=== PATIENT | female | born 1940 | race Caucasian/White ===

== ENCOUNTER 2022-12-27 10:31 | Day surgery (SDC) | payer MEDICARE, SELFPAY ==
[2022-12-27] MEDS: Lactated Ringers 1,000 ML 15 ML IV (11:23)
[2022-12-27 11:25] VITALS: BP 173/75; PULSE 82; RESP 18; TEMP 36.2; O2SAT 98; BMI 26.4
[2022-12-27 11:51] LABS: Bedside Glucose 142 mg/dL (74-106)
[2022-12-27] MEDS: Cefazolin 2 GM in 0.9% Normal Saline 100 ML IV (13:09)
--- NOTE | 2022-12-27 13:57 | PCM.HP.STD ---
HPI - General General Date of Service: 12/27/22 Chief Complaint: Distal left ureteral calculi HPI Narrative ITZEL CARTER, is a 82 F who presents for treatment of a distal left ureteral calculi with laser lithotripsy and stent placement [facility] Medical History (Updated 12/22/22 @ 11:19 by Radha Huffman) Back pain Cardiology follow-up encounter Diabetes Dietary restriction Former smoker High cholesterol History of heart attack History of pain when walking Hx of fracture of arm Hypertension Post-menopausal Thyroid disease Wears dentures Wears glasses Home Medications amlodipine 10 mg tablet 10 mg PO PRN PRN ELEVATED BP 12/22/22 [History Last Taken Unknown] aspirin 81 mg tablet,delayed release 81 mg PO DAILY 12/22/22 [History Last Taken 12/17/22] atorvastatin 40 mg tablet 40 mg PO DAILY 12/22/22 [History Last Taken Unknown] levothyroxine 50 mcg tablet 50 mcg PO DAILY 12/22/22 [History Last Taken 12/27/22] metformin 500 mg tablet,extended release 24hr 500 mg PO BID 12/22/22 [History Last Taken Unknown] ciprofloxacin HCl 500 mg tablet (Cipro) 500 mg PO BID #6 tabs 12/27/22 [Rx Last Taken Unknown] Allergy/AdvReac Type Severity Reaction Status Date / Time No Known Allergies Allergy Verified 12/27/22 11:22 Surgical History (Updated 12/22/22 @ 11:19 by Radha Huffman) History of quadruple bypass Hx of appendectomy Hx of cholecystectomy Hx of tubal ligation Social History Smoking Status: Former smoker Vital Signs Vital Signs Vital Signs: 12/27/22 11:25 12/27/22 11:25 Temperature 97.1 F L Temperature Source Temporal Pulse Rate 82 Respiratory Rate 18 Respiratory Pattern Normal Blood Pressure 173/75 H Blood Pressure Mean 107 Blood Pressure Source Monitor Blood Pressure Position Semi-Fowlers Blood Pressure Location Right Arm Pulse Ox 98 Oxygen Delivery Method Room Air Weight Weight: 69.853 kg Body Mass Index (BMI) 26.4 Results Lab / Micro Data Labs: Laboratory Results - last 24 hr 12/27/22 11:09: POC Glucose 142 H
--- NOTE | 2022-12-27 13:57 | PCM.DC ---
Discharge Instructions Diet Discharge Diet: No restrictions, Light diet - advance as tolerated and Soft diet Activity Discharge Activity: Return to Normal Activity Follow Up Care Please Follow Up With: Rodrick Snyder MD When: Call office for an appointment next week Test Results: Test results from this visit will be discussed in further detail at your follow-up appointment, if applicable. Discharge Plan Admission Primary Reason for Your Visit: kidney stone Attending Provider: Rodrick Snyder Primary Care Provider: Monica Galvez Discharge Orders/Prescriptions Prescriptions: New ciprofloxacin HCl [Cipro] 500 mg tablet 500 mg PO BID Qty: 6 0RF Continued atorvastatin 40 mg Tablet 40 mg PO DAILY aspirin 81 mg Tablet,Delayed Release (Dr/Ec) 81 mg PO DAILY amlodipine 10 mg Tablet 10 mg PO PRN PRN (Reason: ELEVATED BP) levothyroxine 50 mcg Tablet 50 mcg PO DAILY metformin 500 mg Tablet Extended Release 24hr 500 mg PO BID Referrals / Follow Up: Monica Galvez, [Primary Care Provider] - Disposition Disposition (needs filled in before D/C Order can be placed): Home, Self Care
--- NOTE | 2022-12-27 13:58 | PCM.OPRPT ---
Report of Operation Date of Procedure: 12/27/22 Pre-Operative Diagnosis: Distal left ureteral calculi impacted Post-Operative Diagnosis: The same Surgery/Procedure Performed:: Cystoscopy, left retrograde pyelogram, interpretation fluoroscopic images, balloon dilation of the left ureter, left ureteroscopy laser lithotripsy of stone and stent placement Description of Surgical Findings:: Indication this is a an 82-year-old female who presents with obstructing stone in the distal left ureter after some episodes of hematuria which was found on the CT scan she also has a small mass in the right kidney which we recommend the observation for the time being we are plan to proceed with intervention for this obstructing stone in the distal left ureter. Patient was taken back to the operating room and is with duction of general anesthesia she was placed in dorsolithotomy position. I went in the bladder with a 21 [place] rigid cystourethroscope scope the urethra vaginal area and then prepped and draped in usual sterile fashion. Inside the bladder did a mancia cystoscopy there is no tumors or stones within the bladder I then identified the left ureteral orifice cannulated with a wire advanced a wire past the stone under fluoroscopic guidance and then advanced a balloon dilator up to the stone but not beyond it. I then balloon dilated the distal left ureter. I then left the wire in place and then next to the stone I went in with a SlimLine ureteroscope retrograde pyelogram was done to provoke confirm the anatomy and the location. I then used a 270 ?m laser fiber and lasered the stone little tiny pieces all the pieces passed into the bladder as well as lasering it. Eventually got all the stone lasered completely all the stones out of the ureter. And then I advanced a stent over the wire and left the stent in place and drained the patient's bladder so successful balloon dilation, laser, retrograde and stent placement to left side for obstructing stone. She will see me back next week for cystoscopy stent removal Surgeon: Rodrick Snyder Type of Anesthesia: General Drains: stent left Admit VTE Documentation VTE Present on Admission: No VTE Mechan Device Prophylaxis: SCD's VTE Pharm Prophylaxis ordered?: No
[2022-12-27 14:07] VITALS: BP 173/75; BP 183/67; PULSE 71; RESP 16; TEMP 36.3; O2SAT 96
[2022-12-27 14:15] VITALS: BP 173/75; BP 182/77; PULSE 70; RESP 16; O2SAT 100
[2022-12-27 14:30] VITALS: BP 173/75; BP 184/60; PULSE 64; RESP 16; O2SAT 98
[2022-12-27 14:40] LABS: Bedside Glucose 114 mg/dL (74-106)
[2022-12-27 14:45] VITALS: BP 173/75; BP 180/62; PULSE 62; RESP 16; TEMP 36.5; O2SAT 99
[2022-12-27 15:30] VITALS: BP 173/75
== END 2022-12-27 15:43 | disposition home or self-care (01) ==
LOC: SDC 10:38 → AC 11:08
PROVIDERS: PCP Internal Medicine; Referring Provider Urology; Visit Provider Urology
PROC: 0TJ98ZZ Inspection of Ureter, Via Natural or Artificial Opening Endoscopic (ICD-10-PCS; CPT 52352; principal; 2022-12-27 13:10)
DX: N20.1 Calculus of ureter (principal); E11.9 Type 2 diabetes mellitus without complications; I10 Essential (primary) hypertension; E78.00 Pure hypercholesterolemia, unspecified; E07.9 Disorder of thyroid, unspecified; Z79.82 Long term (current) use of aspirin; Z79.84 Long term (current) use of oral hypoglycemic drugs; Z79.890 Hormone replacement therapy; Z79.899 Other long term (current) drug therapy; I25.2 Old myocardial infarction; Z87.891 Personal history of nicotine dependence; Z95.1 Presence of aortocoronary bypass graft
CPT/HCPCS: 52356; 00918; 76000; 82962; J7120; C1769; C2617; J2405

== ENCOUNTER 2023-01-19 13:57 | Emergency (ER) | payer MEDICARE, SELFPAY ==
[2023-01-19 13:58] VITALS: BP 132/67; PULSE 86; RESP 16; TEMP 36; O2SAT 100
--- NOTE | 2023-01-19 14:59 | EDS_ITS ---
HPI History of Present Illness Chief Complaint: Dizziness Narrative Narrative: 82-year-old female here with dizziness. States has history of similar. States this began this AM. No head trauma. No volume loss. no bleeding diathesis. no urinary complaints. [facility] Medical History (Updated 01/19/23 @ 17:[address] Naveed Pereira, DO) Back pain Cardiology follow-up encounter Diabetes Dietary restriction Former smoker High cholesterol History of heart attack History of pain when walking Hx of fracture of arm Hypertension Post-menopausal Thyroid disease Wears dentures Wears glasses Home Medications amlodipine 10 mg tablet 10 mg PO PRN PRN ELEVATED BP 12/22/22 [History Last Taken Unknown] aspirin 81 mg tablet,delayed release 81 mg PO DAILY 12/22/22 [History Last Taken 12/17/22] atorvastatin 40 mg tablet 40 mg PO DAILY 12/22/22 [History Last Taken Unknown] levothyroxine 50 mcg tablet 50 mcg PO DAILY 12/22/22 [History Last Taken 12/27/22] metformin 500 mg tablet,extended release 24hr 500 mg PO BID 12/22/22 [History Last Taken Unknown] ciprofloxacin HCl 500 mg tablet (Cipro) 500 mg PO BID #6 tabs 12/27/22 [Rx Last Taken Unknown] Allergy/AdvReac Type Severity Reaction Status Date / Time No Known Allergies Allergy Verified 01/19/23 13:58 Surgical History History of quadruple bypass Hx of appendectomy Hx of cholecystectomy Hx of tubal ligation Social History Smoking Status: Former smoker ROS ROS ED ROS Narrative Constitutional: Denies fever HEENT: Denies sore throat Neck: Denies neck pain Cardiovascular: Denies chest pain, syncope Respiratory: Denies shortness of breath GI: Denies nausea vomiting or abdominal pain : Denies changes in urinary habits Musculoskeletal: Denies muscle or joint pain Neurologic: Denies numbness weakness or loss of sensation. Endorses dizziness Skin denies rash EXAM Physical Exam Narrative Exam Narrative: Nursing triage notes reviewed, Vital signs reviewed Constitutional: please see mdm HENT: MMM Eyes: Pupils equal round and reactive to light, Extraocular muscles intact Neck: No stridor, no JVD, full neck ROM Lungs: Clear to auscultation, No wheezing or rales. No increased work of breathing, no conversational dyspnea, no accessory muscle use, no nasal flaring. No respiratory distress noted Heart: Regular rate and rhythm, No murmurs, No rubs and No gallops, 2+ distal pulses (radial, femoral, posterior tibial) in all extremities Abdomen: Soft, there is no tenderness, rigidity, rebound or guarding, no obvious peritoneal signs, no palpable pulsatile abdominal masses, no auscultated abd ominal bruit : No CVAT Extremities: No edema Neuro: Alert and oriented x3, neuro exam at baseline, cranial nerves II through XII are intact. No pain with extraocular muscle movement. There is negative test of skew. Normal speech. 5 of 5 strength in upper and lower extremities in flexion extension. Intact sensation to light touch in upper and lower extremity dermatomes. No truncal or extremity ataxia. No dysdiadochokinesia. Normal gait. 2+ reflexes. No meningeal signs. Negative Babinski. NIH of 0 Skin: No rash or lesions noted Const Vital Signs: 01/19/23 13:58 01/19/23 15:20 01/19/23 15:20 Temperature 96.8 F L Temperature Source Temporal Pulse Rate 86 73 Respiratory Rate 16 20 H Respiratory Effort Normal Non-Labored Respiratory Pattern Normal Blood Pressure 132/67 H Blood Pressure Mean 88 Pulse Ox 100 97 Oxygen Delivery Method Room Air Room Air 01/19/23 17:43 Temperature Temperature Source Pulse Rate 65 Respiratory Rate 16 Respiratory Effort Respiratory Pattern Blood Pressure 125/54 H Blood Pressure Mean Pulse Ox 98 Oxygen Delivery Method MDM MDM MDM Narrative Medical decision making narrative: Chief Complaint: Dizziness External records reviewed: No recent advanced imaging of the head noted in the chart I considered the following differential diagnosis: Dehydration, arrhythmia, myocardial ischemia, anemia, posterior circulation CVA Patient's vital signs are stable. She had no focal neurologic deficits. Obtained a broad lab and imaging work-up to further elucidate etiology patient complaint. I obtained a CT scan of the head, chest x-ray to rule out intracranial abnormality such as bleed or mass. X-ray to rule out pneumonia or other issues with heart failure. Obtain labs rule out anemia, electrolyte abnormalities, UTI, dehydration, anemia. Labs are reassuring with no signs of dehydration, significant [place] abnormalities, severe anemia, pancreatitis, myocardial ischemia. UA consistent with asymptomatic bacteriuria. EKG had no evidence of arrhythmia or myocardial ischemia. Patient ambulated here in the emergency department well. No clear life limiting etiology could be assessed. Urine negative at this time. Encouraged patient to drink plenty of fluids and follow with her primary care physician for outpatient evaluation. Sent urine for cx. Factors affecting care: Hypertension, hyperlipidemia Social determinants of health: Elderly, poor literacy History obtained from others: Shared decision making: I will have a discussion with the patient and or visitors regarding risk/benefits of further testing or admission. They will be made aware of of the risk/benefits inherent in this decision they will be given the opportunity to voice understanding. Consults: None Lab Data Attestation: I reviewed the patient's lab results. Lab results narrative: CBC without leukocytosis, severe anemia, no thrombocytopenia. BMP without evidence of significant electrolyte abnormalities, no anion gap, no acute kidney injury. BN P within normal limits this suggests no severe volume overload Lipase is wnl indicating no pancreatic inflammation. CMP without evidence of acute kidney injury, significant electrolyte abnormality, anion gap, no evidence hepatobiliary pathology. Labs: Laboratory Results - last 24 hr 01/19/23 01/19/23 01/19/23 15:20 15:20 15:20 WBC 10.2 RBC 4.49 Hgb 13.7 Hct 44.0 MCV 98.0 MCH 30.5 MCHC 31.1 L RDW Std Deviation 45.0 H RDW Coeff of Beatriz 12.6 Plt Count 276 MPV 10.1 Immature Gran % (Auto) 0.300 Neut % (Auto) 71.5 H Lymph % (Auto) 20.4 Barron % (Auto) 6.3 Eos % (Auto) 1.0 Baso % (Auto) 0.5 Absolute Neuts (auto) 7.3 Absolute Lymphs (auto) 2.09 Nucleated RBC % 0 Sodium 137 Potassium 4.4 Chloride 106 Carbon Dioxide 23.0 Anion Gap 8 BUN 15 Creatinine 1.16 H Estim Creat Clear Calc 33.40 Est GFR (MDRD) Af Amer 58 L Est GFR (MDRD) Non-Af 48 L BUN/Creatinine Ratio 12.9 Glucose 180 H Calcium 9.8 Total Bilirubin 0.40 AST 20 ALT 26 Alkaline Phosphatase 70 Troponin I High Sens 7 B-Natriuretic Peptide 21.3 Total Protein 7.4 Albumin 4.0 Globulin 3.4 Albumin/Globulin Ratio 1.2 Lipase 53 Urine Color Urine Clarity Urine pH Ur Specific [place] Urine Protein Urine Glucose (UA) Urine Ketones Urine Occult Blood Urine Nitrite Urine Bilirubin Urine Urobilinogen Ur Leukocyte Esterase Urine RBC Urine WBC Ur Squamous Epith Cells Urine Bacteria Urine Mucus 01/19/23 16:22 WBC RBC Hgb Hct MCV MCH MCHC RDW Std Deviation RDW Coeff of Beatriz Plt Count MPV Immature Gran % (Auto) Neut % (Auto) Lymph % (Auto) Barron % (Auto) Eos % (Auto) Baso % (Auto) Absolute Neuts (auto) Absolute Lymphs (auto) Nucleated RBC % Sodium Potassium Chloride Carbon Dioxide Anion Gap BUN Creatinine Estim Creat Clear Calc Est GFR (MDRD) Af Amer Est GFR (MDRD) Non-Af BUN/Creatinine Ratio Glucose Calcium Total Bilirubin AST ALT Alkaline Phosphatase Troponin I High Sens B-Natriuretic Peptide Total Protein Albumin Globulin Albumin/Globulin Ratio Lipase Urine Color Yellow Urine Clarity Sl. Cloudy Urine pH 6.0 Ur Specific [place] 1.010 Urine Protein 30 H Urine Glucose (UA) Normal Urine Ketones Negative Urine Occult Blood 10 H Urine Nitrite Negative Urine Bilirubin Negative Urine Urobilinogen Normal Ur Leukocyte Esterase 500 H Urine RBC 0 SEEN Urine WBC 0-5 SEEN Ur Squamous Epith Cells 0-5 SEEN Urine Bacteria 1+ Urine Mucus 0 SEEN Radiography Chest X-Ray - ED: Read by ED Physician Diagnostic Testing: Clinical Impression(s) from Imaging Studies Brain CT 01/19/23 15:10 IMPRESSION: There are no acute findings. Chronic involutional changes of the brain. Electronically Signed: Raúl Gandhi MD at 15:49 EDT , Chest X-Ray 01/19/23 15:30 IMPRESSION: There are no acute findings. Electronically Signed: Raúl Gandhi MD at 15:47 EDT , I have personally reviewed the patient's chest x-ray. Chest x-ray is unremarkable for pulmonary edema, pneumothorax, pneumonia or focal cardiopulmonary abnormality. EKG Initial EKG: Attestation: I personally reviewed and interpreted this EKG as follows: Interpretation: Sinus Rhythm Comments: EKG with normal sinus rhythm, normal axis, no intervals, no STEMI Discharge Plan Triage Chief Complaint: Dizziness ED Provider: Naveed Pereira Dx/Rx/DC Orders Clinical Impression: Dizziness Instructions: ED Dizziness, Uncertain Cause Prescriptions: No Action atorvastatin 40 mg Tablet 40 mg PO DAILY aspirin 81 mg Tablet,Delayed Release (Dr/Ec) 81 mg PO DAILY amlodipine 10 mg Tablet 10 mg PO PRN PRN (Reason: ELEVATED BP) levothyroxine 50 mcg Tablet 50 mcg PO DAILY metformin 500 mg Tablet Extended Release 24hr 500 mg PO BID ciprofloxacin HCl [Cipro] 500 mg tablet 500 mg PO BID Qty: 6 0RF Primary Care Provider: Tico Lara Referrals: Tico Lara MD [Primary Care Provider] - Disposition Disposition: Home, Self Care Discharge Date/Time: 01/19/23 17:45
--- NOTE | 2023-01-19 15:10 | CT_ITS ---
STUDY: CT BRAIN WITHOUT CONTRAST REASON FOR EXAM: Female, 82 years old. dizziness, r/o bleed or mass Individualized dose optimization techniques were used for this CT. TECHNIQUE: Transaxial CT imaging of the brain was performed without administration of intravenous contrast material. COMPARISON: None FINDINGS: There are calcifications around the carotid artery. These are noted in the cavernous carotid arteries. Normal calvarium. Normal soft tissues. There is mild cerebral atrophy with widening of the extra-axial spaces and ventricular dilatation. There are areas of decreased attenuation within the white matter tracts of the supratentorial brain, consistent with microvascular disease changes. Normal basal ganglia and thalami. Normal brainstem. There is mild cerebellar atrophy. There is no intracranial hemorrhage. There are no findings of an acute ischemic infarction. Normal visualized paranasal sinuses. ASPECTS Score for Acute Strokes: 10 CT/Brain/Head without Contrast IMPRESSION: There are no acute findings. Chronic involutional changes of the brain. Electronically Signed: Raúl Gandhi MD at 15:49 EDT ,
[2023-01-19 15:20] VITALS: PULSE 73; RESP 20; O2SAT 97; BMI 26.8
--- NOTE | 2023-01-19 15:30 | RAD_ITS ---
STUDY: XR Chest 1 View 01/19/2023 3:25 PM REASON FOR EXAM: Female, 82 years old. CHEST PAIN dizziness COMPARISON: None TECHNIQUE: XR Chest 1 View FINDINGS: There is no demonstrated pleural abnormality. There are multiple median sternotomy wires. Normal heart size. Normal mediastinum. Normal damian. Prominent appearing increased interstitial lung markings. Normal visualized pulmonary arteries. There is atherosclerotic calcification of the aortic arch with tortuosity. There are diffuse degenerative changes of the visualized thoracic spine. There is degenerative osteoarthritis of the bilateral shoulders. There is no demonstrated abnormality of the visualized soft tissue structures of the upper abdomen. RAD/Chest 1 View (Portable) IMPRESSION: There are no acute findings. Electronically Signed: Raúl Gandhi MD at 15:47 EDT ,
[2023-01-19 15:33] LABS: Absolute Lymphocyte Count 2.09 X10^3/uL (0.83-4.51); Absolute Neutrophil Count 7.3 X10^3/uL (2.0-7.7); Basophil# 0.05 X10^3/uL; Basophil% 0.5 % (0-1); Hemoglobin 13.7 g/dL (12.0-15.0); Lymphocyte # 2.09 X10^3/ul (0.83-4.51); Lymphocyte % 20.4 % (19-41); Mean Corp Hgb Conc 31.1 g/dL (32-36); Mean Corpuscular Hgb 30.5 pg (27.0-32.0); Mean Platelet Vol. 10.1 fl (6.2-12.0); Monocyte# 0.64 X10^3/uL; Monocyte% 6.3 % (0-10); NRBC Flagged by Analyzer 0 % (0-5); Neutrophil # 7.32 X10^3/uL (2.7-7.7); Neutrophil % 71.5 % (47-70); Platelet Count 276 K/mm3 (150-450); RBC Distribution Width CV 12.6 % (11.6-14.6); Red Blood Count 4.49 M/mm3 (4.2-5.4); White Blood Count 10.2 K/mm3 (4.4-11.0)
[2023-01-19 15:53] LABS: ALB/GLOB Ratio 1.2 RATIO (0.9-2.4); AST(SGOT) 20 U/L (15-37); Alanine Aminotransfer ALT/SGPT 26 U/L (13-56); Alkaline Phosphatase 70 U/L (45-117); Anion Gap 8 (5-15); BUN 15 mg/dL (7-18); BUN/Creat Ratio 12.9 RATIO (10-20); Calcium,Total 9.8 mg/dL (8.5-10.1); Chloride 106 mmol/L (98-107); Creatinine, Serum 1.16 mg/dL (0.55-1.02); EST Glomerular Filtration Rate 48 mL/min (>60); Est Glom Filt Rate - Afr Amer 58 mL/min (>60); Globulin 3.4 g/dL (2.2-4.2); Glucose 180 mg/dL (74-106); Lipase 53 U/L (13-75); Potassium 4.4 mmol/L (3.5-5.1); Protein, Total 7.4 g/dL (6.4-8.2); Sodium Level 137 mmol/L (136-145); Troponin-I HS 7 pg/mL (3.0-54.0)
[2023-01-19 15:59] LABS: BNP,B-Type NATRIURETIC PEPTIDE 21.3 pg/mL (0-100)
--- NOTE | 2023-01-19 16:11 | EKG12_ITS ---
Test Reason : DIZZINESS Blood Pressure : / mmHG Vent. Rate : 083 BPM Atrial Rate : 083 BPM P-R Int : 118 ms QRS Dur : 084 ms QT Int : 344 ms P-R-T Axes : -27 020 032 degrees QTc Int : 404 ms Normal sinus rhythm Normal ECG Confirmed by ROSARIO BALL ([id number]), communications editor JOE PHAN ([id number]) on 01/23/2023 7:56:15 AM Referred By: BB/ANKITA Confirmed By:ROSARIO BALL
[2023-01-19 16:27] LABS: Mucous, Urine 0 SEEN /hpf (<or=2+); Red Blood Cells-Urine 0 SEEN /hpf (0-5)
[2023-01-19 16:34] LABS: Color, Urine Yellow (Yellow); Glucose, Dipstick Normal (Normal); Ketone-Dipstick Negative (Negative); Leukocyte Esterase-Dipstick 500 /ul (Negative); Nitrite-Dipstick Negative (Negative); Occult Blood-Urine 10 /ul (Negative); Protein-Dipstick 30 mg/dl (Negative); Urine Bilirubin Dipstick Negative (Negative); Urine Clarity Sl. Cloudy (Clear); Urine Urobilinogen Normal (Normal)
[2023-01-19 16:45] LABS: Bacteria 1+ /hpf (None Seen); Squamous Epithelial Cells - UA 0-5 SEEN /hpf (5-10); White Blood Cells 0-5 SEEN /hpf (0-5)
[2023-01-19 17:43] VITALS: BP 125/54; PULSE 65; RESP 16; O2SAT 98
== END 2023-01-19 17:45 | disposition home or self-care (01) ==
PROVIDERS: Emergency Provider Emergency Medicine; PCP Family Medicine; Visit Provider Emergency Medicine
DX: R42 Dizziness and giddiness (principal); E11.9 Type 2 diabetes mellitus without complications; I10 Essential (primary) hypertension; Z87.891 Personal history of nicotine dependence; E78.00 Pure hypercholesterolemia, unspecified
CPT/HCPCS: 70450; 71045; 80053; 81001; 83690; 83880; 84484; 85025; 87086; 87088; 93005; 99284; J7030; A4216

== ENCOUNTER 2023-12-13 17:46 | Emergency (ER) | payer MEDICARE, SELFPAY ==
[2023-12-13 17:47] VITALS: BP 181/84; PULSE 83; RESP 16; TEMP 36.7; O2SAT 98; BMI 27.3
--- NOTE | 2023-12-13 20:21 | ED.RN ---
CALLED FOR PT AND NO RESPONSE.
--- OUTSIDE RECORDS SUMMARY | 2023-12-13 21:15 | XMS RPT_ITS | CCD ---
Author Name Unknown Address [address] [place] [address] Organization [facility] Care Team Providers Care Examiner Rating Clerk Name Role Phone Lolis Riley () Primary Care Provider Monica Galvez DO Unavailable Brea Diggs Unavailable Unavailable Grazyna Jiménez Unavailable Unavailable Food Product Inspector, System Unavailable Unavailable Unavailable Unavailable Kevyn Holt MD Primary Care Provider PREETI DO, THUY Attending Unavailable YANET DO, DR BAGLEY Primary Care Russel HOLT MD, DR BAGLEY Primary Care Unavailgarry ZUÑIGA MD, DR KELSEY Attending Kevyn Noble MD Primary Care Provider KEVYN HOLT Primary Care Unavailable KEVYN HOLT Attending Unavailable KEVYN HOLT Primary Care Unavailable KEVYN HOLT Attending Unavailable KEVYN HOLT Primary Care Unavailable KEVYN HOLT Primary Care Unavailable KEVYN HOLT Primary Care Unavailable KEVYN HOLT Attending Unavailable Allergies Allergy Classification Reported Allergen(s) Allergy Type Date of Onset Reaction(s) Facility (10 sources) Acetaminophen / HYDROcodone Drug Allergy 01-04-2007 [facility] Medications Current Medications Medication Drug Class(es) Dates Sig (Normalized) Sig (Original) aspirin 81 mg oral tablet (8 sources) Platelet Aggregation Inhibitor, Nonsteroidal Anti-inflammatory Drug take 81 mg by mouth once daily ASPIRIN 81 PO Take 81 mg by mouth daily. 0 Active atorvastatin 40 mg oral tablet (10 sources) HMG-CoA Reductase Inhibitor Start: 11-20-2022 End: 11-07-2023 take 1 tablet by mouth once daily atorvastatin (Lipitor) 40 MG tablet take 1 tablet by mouth once daily 90 tablet 1 11/07/2023 Active levothyroxine sodium 0.05 mg oral tablet (12 sources) l-Thyroxine Start: 11-19-2023 take 1 tablet by mouth once daily levothyroxine (Synthroid, Levoxyl) 50 MCG tablet Take 1 tablet (50 mcg) by mouth daily. 90 tablet 1 11/19/2023 Active Completed/Discontinued Medications Medication Drug Class(es) Dates Sig (Normalized) Sig (Original) ACCU-CHEK COMPACT PLUS CARE (Kit) (1 source) Start: 01-23-2011 ACCU-CHEK COMPACT PLUS CARE (Kit) uad Kit bid for 30 days Quantity: 1 Kit Refills: 3 Ordered: 23-Jan-2011 Start : 23-Jan-2011 Active Comments: pt test BID DX: 250.00 Problems Active Problems Problem Classification Problem Date Documented Da te Episodic/Chronic Acute myocardial infarction (2 sources) Acute myocardial infarction of unspecified site, episode of care unspecified; Translations: [MYOCARDIAL INFARCTION, NOS] 02-05-2012 Chronic Calculus of urinary tract (2 sources) Calcium renal calculus ; Translations: [Calcium nephrolithiasis] 08-25-2015 Episodic Past or Other Problems Problem Classification Problem Date Documented Da te Episodic/Chronic Other circulatory disease (8 sources) Carotid bruit; Translations: [Other specified symptoms and signs involving the circulatory and respiratory systems] Onset: 12-05-2022 12-05-2022 Episodic Other circulatory disease (7 sources) Orthostatic hypotension; Translations: [Orthostatic hypotension] Onset: 01-23-2023 01-23-2023 Episodic Other circulatory disease (2 sources) Other specified symptoms and signs involving the circulatory and respiratory systems; Translations: [Other specified symptoms and signs involving the circulatory and respiratory systems] Onset: 12-05-2022 Episodic Other female genital disorders (8 sources) Hypertrophy of uterus; Translations: [Hypertrophy of uterus] Onset: 03-22-2016 07-21-2022 Episodic Pneumonia (except that caused by tuberculosis or sexually transmitted disease) (1 source) Infective pneumonia; Translations: [Pneumonia, organism unspecified] Resolved: 09-26-2010 08-24-2015 Episodic Spondylosis; intervertebral disc disorders; other back problems (10 sources) Low back pain; Translations: [Backache] Onset: 12-05-2022 04-07-2008 Episodic Syncope (9 sources) Near syncope; Translations: [Syncope and collapse] Onset: 01-23-2023 01-23-2023 Episodic Unclassified (1 source) Deliveries (Parity); Translations: [Deliveries (Parity)] 02-05-2012 Results Test Name Value Interpretation Reference Range Facil ity Vital Signs Date Time Vital Sign Value Performing Clinician Facility 12-06-2023 09:53-0500 Diastolic blood pressure 84 mm[Hg] Kevyn Holt MD Work Phone: [facility] 12-06-2023 09:53-0500 Heart rate 75 /min Kevyn Holt MD Work Phone: [facility] 12-06-2023 09:53-0500 Systolic blood pressure 161 mm[Hg] Kevyn Holt MD Work Phone: [facility] 12-06-2023 09:24-0500 Body height 162.6 cm Kevyn Holt MD Work Phone: [facility] 12-06-2023 09:24-0500 Body mass index (BMI) [Ratio] 27.46 kg/m2 Kevyn Holt MD Work Phone: [facility] 12-06-2023 09:24-0500 Body weight 72.58 kg Kevyn Holt MD Work Phone: [facility] 12-06-2023 09:24-0500 SaO2% (BldA) [Mass fraction] 97 % Kevyn Holt MD Work Phone: [facility] 06-06-2023 10:07-0400 Diastolic blood pressure 95 mm[Hg] Kevyn Holt MD Work Phone: [facility] 06-06-2023 10:07-0400 Heart rate 71 /min Kevyn Holt MD Work Phone: [facility] 06-06-2023 10:07-0400 Systolic blood pressure 179 mm[Hg] Kevyn Holt MD Work Phone: [facility] 06-06-2023 09:35-0400 Body height 162.6 cm Kevyn Holt MD Work Phone: [facility] 06-06-2023 09:35-0400 Body mass index (BMI) [Ratio] 26.09 kg/m2 Kevyn Holt MD Work Phone: [facility] 06-06-2023 09:35-0400 Body weight 68.95 kg Kevyn Holt MD Work Phone: [facility] 06-06-2023 09:35-0400 SaO2% (BldA) [Mass fraction] 95 % Kevyn Holt MD Work Phone: [facility] 02-05-2012 15:24-0400 Body height 163.83 cm [facility]; [facility] Work Phone: 02-05-2012 15:24-0400 Body mass index (BMI) [Ratio] 33.63 kg/m2 [facility]; [facility] Work Phone: 02-05-2012 15:24-0400 Body surface area Derived from formula 1.96 m2 [facility]; [facility] Work Phone: 02-05-2012 15:24-0400 Body temperature 98 [degF] Grazyna Jiménez [facility] Work Phone: 02-05-2012 15:24-0400 Body weight 90.27 kg [facility]yna [facility]; [facility] Work Phone: 02-05-2012 15:24-0400 Diastolic blood pressure 82 mm[Hg] [facility]; [facility] Work Phone: Encounters Encounter Date Encounter Type Care Provider Facility Start: 12-06-2023 End: 12-06-2023 ambulatory Start: 12-06-2023 End: 12-06-2023 Encounter for general adult medical examination without abnormal findings Start: 12-06-2023 End: 12-06-2023 Patient encounter procedure Kevyn Holt MD Work Phone: [facility] Procedures Date Procedure Procedure Detail Performing Clinician Start: 12-06-2023 Adult depression scr eening assessment Kevyn Holt MD Work Phone: Start: 01-21-2023 Thyrotropin [Units/v olume] in Serum or Plasma Kevyn Holt MD Work Phone: Start: 12-05-2022 Adult depression scr eening assessment Kevyn Holt MD Work Phone: Start: 12-05-2022 Lipid 1996 panel - S kalyani or Plasma Kevyn Holt MD Work Phone: Start: 12-14-2011 CONVERTED SURGICAL PATHOLOGY Jaden Gardner Work Phone: Cholecystectomy Cholecystectomy Grazyna Jiménez H/O: tubal ligation Tubal Ligation Pk Jiménez History of appendectomy Appendectomy Liz Jiménez Plan of Treatment Date Care Activity Detail Author Start: 12-05-2024 Depression Screening Depression Scre ening [facility] Start: 06-05-2024 DTaP/Tdap/Td Vaccine s (1 - Tdap) DTaP/Tdap/Td Vaccines (1 - Tdap) [facility] Immunizations Immunization Date Immunization Notes Care Provider Fa jp 07-02-2023 COVID-19, mRNA, LNP- S, PF, 50 mcg/0.5 mL Kevyn Holt MD Work Phone: [facility] 07-25-2022 Covid-19, Moderna Bivalent Booster, (Age 18y+), Im, 50 Mcg/d Kevyn Holt MD Work Phone: [facility] 01-10-2022 Moderna SARS-CoV-2 Vaccination Kevyn Holt MD Work Phone: [facility] 04-07-2008 pneumococcal polysaccharide vaccine, 23 valent Jaden Gardner [facility] Payers Date Payer Category Payer Unknown [id number] 00 2007 Medicare [facility] [id number] 2007-2017 O [id number] 2007 Medicare [id number] 2007 Medicare [id number] 1940 Unknown [id number] 1940 Unknown [id number] Unknown SECURE CARE/MCARE ADV PLAN Social History Date Type Detail Facility Start: 11-12-2008 End: 12-05-2022 Tobacco smoking status NHIS Former smoker [facility] End: 10-08-1981 History of tobacco use Current smoker [facility] End: 10-08-1981 History of tobacco use Cigarette Smoker [facility] Start: 11-12-2008 End: 12-05-2023 Cigarettes smoked current (pack per day) - Reported [facility] Medical Equipment Procedure Code Equipment Code Equipment Origin al Text Equipment Identifier Dates Start: 12-22-2008 Clinical Notes 12-19-2022 to 12-06-2023 Assessment & Plan Note - Kevyn Holt MD - 12/06/2023 10:21 AM ESTAssessment & Plan Note - Kevyn Holt MD - 12/06/2023 10:21 AM Johnson Waddell MA - 12/06/2023 9:30 AM EST Note Date & Type Note Facility 12-06-2023 Evaluation + Plan note Associated Problem(s): Hyperlipidemia LDL goal <70 Controlled, continue atorvastatin 40 mg daily [facility] 12-06-2023 Miscellaneous Notes Associated Problem(s): Hyperlipidemia LDL goal <70 Controlled, continue atorvastatin 40 mg daily Associated Problem(s): Diabetic nephropathy associated with type 2 diabetes mellitus (HCC) Stable, has had no worsening continue good blood sugar control to prevent further nerve damage Associated Problem(s): Hypothyroidism (acquired) Stable, continue levothyroxine 50 mcg daily Associated Problem(s): Type 2 diabetes mellitus without complication, without long-term current use of insulin (CMS/HCC) (HCC) Controlled, last A1c was 6.0 we will recheck that today, continue metformin 500 mg twice a day. Associated Problem(s): Essential hypertension Blood pressure was initially elevated, recheck was still a little high but improved, will have her follow-up in 1 week for blood pressure check and bring in blood pressure numbers from home. May need to start her back on her amlodipine 10 mg. documented in this encounter [facility] 12-06-2023 Evaluation + Plan note Associated Problem(s): Diabetic nephropathy associated with type 2 diabetes mellitus (HCC) Stable, has had no worsening continue good blood sugar control to prevent further nerve damage [facility] 12-06-2023 Evaluation + Plan note Associated Problem(s): Hypothyroidism (acquired) Stable, continue levothyroxine 50 mcg daily [facility] 12-06-2023 Evaluation + Plan note Associated Problem(s): Type 2 diabetes mellitus without complication, without long-term current use of insulin (CMS/HCC) (HCC) Controlled, last A1c was 6.0 we will recheck that today, continue metformin 500 mg twice a day. [facility] 12-06-2023 Evaluation + Plan note Associated Problem(s): Essential hypertension Blood pressure was initially elevated, recheck was still a little high but improved, will have her follow-up in 1 week for blood pressure check and bring in blood pressure numbers from home. May need to start her back on her amlodipine 10 mg. [facility] 12-06-2023 History of Presen t illness Narrative Patient verified by last name and date of . Images from the original note were not included. [facility] [address] [facility] [address] [facility] [id number] Visit Type: Medicare Annual Wellness PCP: Kevyn Holt MD Reason for Visit: Medicare Annual Wellness Visit Subsequent (Pt refusing foot exam), Blood Work, and Health Maintenance (Pt refused- dexa scan, rsv vaccine, pcv 20 vaccine, flu vaccine) Assessment and Plan Problem List Items Addressed This Visit Circulatory Essential hypertension Blood pressure was initially elevated, recheck was still a little high but improved, will have her follow-up in 1 week for blood pressure check and bring in blood pressure numbers from home. May need to start her back on her amlodipine 10 mg. Endocrine/Metabolic Type 2 diabetes mellitus without complication, without long-term current use of insulin ([facility] ([facility]) Controlled, last A1c was 6.0 we will recheck that today, continue metformin 500 mg twice a day. Relevant Orders Comprehensive metabolic panel Microalbumin / creatinine urine ratio Hemoglobin A1c HP Diabetic Foot Exam (Completed) Diabetic nephropathy associated with type 2 diabetes mellitus (HCC) Stable, has had no worsening continue good blood sugar control to prevent further nerve damage Relevant Orders HP Diabetic Foot Exam (Completed) Hypothyroidism (acquired) Stable, continue levothyroxine 50 mcg daily Relevant Orders TSH Other Hyperlipidemia LDL goal <70 Controlled, continue atorvastatin 40 mg daily Relevant Orders Lipid panel Other Visit Diagnoses Medicare annual wellness visit, subsequent - Primary I have reviewed and reconciled the medication list with the patient today. Current Outpatient Medications Medication Sig Dispense Refill ASPIRIN 81 PO Take 81 mg by mouth daily. atorvastatin (Lipitor) 40 MG tablet take 1 tablet by mouth once daily 90 tablet 1 levothyroxine (Synthroid, Levoxyl) 50 MCG tablet Take 1 tablet (50 mcg) by mouth daily. 90 tablet 1 metFORMIN (Glucophage) 500 MG tablet take 1 tablet by mouth twice a day with meals 180 tablet 1 Multiple Vitamin (MULTIVITAMIN ADULT PO) Take by mouth. No current facility-administered medications for this visit. Medications Discontinued During This Encounter Medication Reason amLODIPine (Norvasc) 10 MG tablet Therapy completed The following health maintenance schedule was reviewed with the patient and provided in printed form in the after visit summary: Health Maintenance Topic Date Due Medicare Advantage Annual Wellness Visit (AWV) Never done Bone Density Scan Never done RSV Immunization aged 60 or older (1 - 1-dose 60+ series) Never done Pneumococcal Vaccine: 65+ Years (2 of 2 - PCV) 04/07/2009 Influenza Vaccine (1) Never done DTaP/Tdap/Td Vaccines (1 - Tdap) 06/05/2024 (Originally 1961) Hepatitis B Vaccines (1 of 3 - Risk 3-dose series) 06/05/2024 (Originally 2002) Hepatitis A Vaccines (1 of 2 - Risk 2-dose series) 06/05/2024 (Originally 1961) Zoster Vaccines (1 of 2) 06/05/2024 (Originally 1992) Thyroid Nodule Ultrasound 06/05/2024 (Originally 1942) TSH Level 01/22/2024 Depression Screening 12/05/2024 COVID-19 Vaccine Completed RSV Immunization under 20 Months Aged Out HIB Vaccines Aged Out IPV Vaccines Aged Out Meningococcal Vaccine Aged Out Rotavirus Vaccines Aged Out HPV Vaccines Aged Out Orders Placed This Encounter Procedures Lipid panel Standing Status: Future Number of Occurrences: 1 Standing Expiration Date: 12/05/2024 Comprehensive metabolic panel Standing Status: Future Number of Occurrences: 1 Standing Expiration Date: 12/05/2024 Microalbumin / creatinine urine ratio Standing Status: Future Number of Occurrences: 1 Standing Expiration Date: 12/05/2024 Hemoglobin A1c Standing Status: Future Number of Occurrences: 1 Standing Expiration Date: 12/05/2024 TSH Standing Status: Future Number of Occurrences: 1 Standing Expiration Date: 12/05/2024 HP Diabetic Foot Exam Follow up in about 6 months (around 06/05/2024). Subjective JEFF Trivedi comes in today for her annual Medicare well visit, she is also here for follow-up on her diabetes, diabetic neuropathy, hypertension, hypothyroidism and hyperlipidemia. Her blood pressure is slightly elevated today we will have to recheck that prior to discharge. List of current healthcare providers: Patient Care Team: Kevyn Holt MD as PCP - General Health Risk Assessment: General: General In general, how would you say your health is?: Good In the past 7 days, have you experienced any of the following: New or Increased Pain, New or Increased Fatigue, Loneliness, Social Isolation, Stress or Anger?: No Do you get the social and emotional suppport you need?: Yes Health Habits/Nutrition: Health Habits / Nutrition On average, how many days per week do you engage in moderate to strenous exercise (like a brisk walk)?: (!) 0 days On average, how man minutes do you engage in exercise at this level?: (!) 0 min Have you lost any weight without trying in the past 3 months? : No Have you seen the dentist within the past year?: (!) No Interventions: Dental exam overdue: Patient declines dental evaluation and has dentures Hearing/ Vision: Hearing / Vision Do you or your family notice any trouble with your hearing that hasn't been managed with hearing aids?: No Do you have difficulty driving, watching TV, or doing any of your daily activities because of your eyesight?: (!) Yes Have you had an eye exam within the past year?: Yes No results found. Interventions: Safety: Safety Do you have a working smoke detector?: Yes Do you have any tripping hazards - loose or unsecured carpets or rugs?: (!) Yes Do you have any tripping hazards - clutter in doorways, halls, or stairs?: No Do you have either shower bars, grab bars, non-slip mats or non-slip surfaces in your shower or bathtub? : (!) No Do all your stairways have a railing or banister? : Not Applicable Do you fasten your seatbelt when you are in a car?: Yes Interventions: Home safety tips provided ADL: ADL In the past 7 days, did you need help from others to perform any of the following everyday activities: Eating, dressing, grooming,bathing, toileting, or walking / balance? : No In the past 7 days, did you need help from others to take care of any of the following: laundry, housekeeping, banking / finances,shopping, telephone use, food preparation, transportation, or taking medications? : No Living Will: Living Will Do you have a living will?: No Interventions: Patient declines ACP discussion / assistance Cognitive: Cognitive Screening: Mini-Cog Clock Drawing Test (CDT): 2 Words Recalled: 2 Total Score: 4 Total Score Interpretation: Normal Mini-Cog Fall Risk: Fall Risk One or more falls in the last year:: No Advised to use a cane or walker to get around safely:: No Feels unsteady when walking:: Yes Steadies self on furniture while walking at home:: Yes Worried about falling:: No Depression Screening: Over the past 2 weeks, how often have you been bothered by any of the following problems? Little interest or pleasure in doing things: Not at all Feeling down, depressed, or hopeless: Not at all Patient Health Questionnaire-2 Score: 0 Interventions: Tobacco Use: Social History Tobacco Use Smoking Status Former Packs/day: .5 Types: Cigarettes Quit date: 10/08/1979 Years since quittin.1 Smokeless Tobacco Never Alcohol Use: Audit Alcohol Screening Q2: How many drinks containing alcohol do you have on a typical day when you are drinking?: Patient does not drink Review of Systems Constitutional: Negative for chills and fever. Respiratory: Negative for shortness of breath. Cardiovascular: Negative for chest pain and palpitations. Gastrointestinal: Negative for abdominal pain, blood in stool, constipation and diarrhea. Genitourinary: Negative for dyspareunia, dysuria, frequency, hematuria and urgency. Neurological: Negative for weakness and numbness. Psychiatric/Behavioral: Negative for dysphoric mood. The patient is not nervous/anxious. Immunization History Administered Date(s) Administered COVID-19, mRNA, LNP-S, PF, 50 mcg/0.5 mL 07/02/2023 Covid-19, Moderna Bivalent Booster, (Age 6y-11y) 07/25/2022 Moderna SARS-CoV-2 Vaccination 11/01/2020, 11/29/2020, 08/03/2021, 01/10/2022 Pneumococcal Polysaccharide PPSV23 04/07/2008 Allergies Allergen Reactions Hydrocodone-Acetaminophen Pt stated she has never taken this medicaiton Pioglitazone Hcl-Metformin Hcl Other reaction(s): Vomiting lost 20 lbs while on it, ended up hospitalized Outpatient Medications Prior to Visit Medication Sig Dispense Refill ASPIRIN 81 PO Take 81 mg by mouth daily. atorvastatin (Lipitor) 40 MG tablet take 1 tablet by mouth once daily 90 tablet 1 levothyroxine (Synthroid, Levoxyl) 50 MCG tablet Take 1 tablet (50 mcg) by mouth daily. 90 tablet 1 metFORMIN (Glucophage) 500 MG tablet take 1 tablet by mouth twice a day with meals 180 tablet 1 Multiple Vitamin (MULTIVITAMIN ADULT PO) Take by mouth. amLODIPine (Norvasc) 10 MG tablet Take 1 tablet (10 mg) by mouth daily. (Patient not taking: Reported on 12/05/2023) 90 tablet 1 No facility-administered medications prior to visit. Past Medical History: Diagnosis Date DM type 2 (diabetes mellitus, type 2) (HCC) Dysphagia Hyperlipidemia Hypertension Hypothyroidism Kidney stone Neuropathy Obesity Osteoarthritis Stroke (HCC) Uterine hypertrophy Social History Socioeconomic History Marital status: Tobacco Use Smoking status: Former Packs/day: .5 Types: Cigarettes Quit date: 10/08/1979 Years since quittin.1 Smokeless tobacco: Never Vaping Use Vaping Use: Never used Substance and Sexual Activity Alcohol use: No Drug use: No Sexual activity: Not Currently Social Determinants of Health Financial Resource Strain: Low Risk (12/05/2023) Overall Financial Resource Strain (CARDIA) Difficulty of Paying Living Expenses: Not hard at all Food Insecurity: No Food Insecurity (12/05/2023) Hunger Vital Sign Worried About Running Out of Food in the Last Year: Never true Ran Out of Food in the Last Year: Never true Transportation Needs: No Transportation Needs (12/05/2023) PRAPARE - Transportation Lack of Transportation (Medical): No Lack of Transportation (Non-Medical): No Physical Activity: Inactive (12/05/2023) Exercise Vital Sign Days of Exercise per Week: 0 days Minutes of Exercise per Session: 0 min Housing Stability: Low Risk (12/05/2023) Housing Stability Vital Sign Unable to Pay for Housing in the Last Year: No Number of Places Lived in the Last Year: 1 Unstable Housing in the Last Year: No Past Surgical History: Procedure Laterality Date APPENDECTOMY CARDIAC SURGERY 04/21/2016 Triple bypass CATARACT EXTRACTION Right CHOLECYSTECTOMY KIDNEY STONE SURGERY Past Surgical History: Procedure Laterality Date APPENDECTOMY CARDIAC SURGERY 04/21/2016 Triple bypass CATARACT EXTRACTION Right CHOLECYSTECTOMY KIDNEY STONE SURGERY Family History Problem Relation Name Age of Onset Diabetes Sister Heart failure Mother No Known Problems Father Diabetes Brother Diabetes Sister Diabetes Sister Diabetes Brother Cancer Sister breast Diabetes Sister Diabetes Brother Diabetes Brother Objective BP (!) 161/84 Pulse 75 Ht 5' 4 (1.626 m) Wt 160 lb (72.6 kg) SpO2 97% BMI 27.46 kg/m Physical Exam Vitals and nursing note reviewed. Constitutional: General: She is not in acute distress. Appearance: Normal appearance. HENT: Head: Normocephalic. Right Ear: Tympanic membrane, ear canal and external ear normal. Left Ear: Tympanic membrane, ear canal and external ear normal. Mouth/Throat: Mouth: Mucous membranes are moist. Pharynx: Oropharynx is clear. Eyes: Extraocular Movements: Extraocular movements intact. Pupils: Pupils are equal, round, and reactive to light. Neck: Vascular: No carotid bruit. Cardiovascular: Rate and Rhythm: Normal rate and regular rhythm. Heart sounds: Normal heart sounds. No murmur heard. Pulmonary: Effort: Pulmonary effort is normal. Breath sounds: Normal breath sounds. Abdominal: General: Bowel sounds are normal. Palpations: Abdomen is soft. Musculoskeletal: General: Normal range of motion. Cervical back: Normal range of motion. Lymphadenopathy: Cervical: No cervical adenopathy. Skin: General: Skin is warm and dry. Neurological: General: No focal deficit present. Mental Status: She is alert and oriented to person, place, and time. Comments: Diabetic foot check: Normal strength and range of motion of toes, feet, and ankles bilaterally. No joint deformity. No cyanosis or clubbing. 100% sensation with 10 gram filament. Dorsalis pedis pulses intact bilaterally. Capillary refill at the toes was less than 2 seconds. Light touch sensation intact bilaterally. Hair growth present on feet and toes bilaterally. No skin breakdown, erythema, rub spots, blisters, scaling, or ulcers. No calluses or corns. Toenails thin and not ingrown. No evidence of fungal infection. Psychiatric: Mood and Affect: Mood normal. Kevyn Holt MD 12/06/2023 10:22 AM Patient was verified by name and . Venipuncture performed on left arm. documented in this encounter [facility] 11-07-2023 Telephone encounter Note Prescription Request: Last medication check: 06/06/23 Last physical exam: 12/05/22 Next scheduled appointment: 12/06/23 Last date of refill on this medication 05/15/23 [facility] 11-07-2023 Miscellaneous Notes Prescription Request: Last medication check: 06/06/23 Last physical exam: 12/05/22 Next scheduled appointment: 12/06/23 Last date of refill on this medication 05/15/23 documented in this encounter [facility] 06-11-2023 Telephone encounter Note Message released to patient as written. Patient's further questions if applicable: N/A Were all questions from office addressed or relayed to the patient from encounter: Yes [facility] 06-11-2023 Miscellaneous Notes Message released to patient as written. Patient's further questions if applicable: N/A Were all questions from office addressed or relayed to the patient from encounter: Yes LM to relay results, please document in this encounter that results were relayed and if patient has any questions. Also attempted the patients home line it was busy. ----- Message from Kevyn Holt MD sent at 06/07/2023 6:40 AM EDT ----- Blood sugar is a little high at 132, chemistry is normal with stable kidney function. A1c is good at 6.0 documented in this encounter [facility] 06-07-2023 Telephone encounter Note LM to relay results, please document in this encounter that results were relayed and if patient has any questions. Also attempted the patients home line it was busy. [facility] 06-07-2023 Telephone encounter Note ----- Message from Kevyn Holt MD sent at 06/07/2023 6:40 AM EDT ----- Blood sugar is a little high at 132, chemistry is normal with stable kidney function. A1c is good at 6.0 [facility] 06-06-2023 Telephone encounter Note Rx sent. [facility] 06-06-2023 Miscellaneous Notes Rx sent. Patient stated blood pressure was high at appointment today and they are completely out of this medication. Medication name: amLODIPine (NORVASC) 10 MG tablet Medication dosage: 10 mg (Miligrams Monthly quantity needed: 30 How many day supply requestin days Medication route: oral (PO) Medication administration time(s): daily If taking medication PRN, reason for taking medication: N/A If this is a controlled substance do you receive this or any other controlled medication from any other doctor or facility: No Ordering provider: Dr Holt Date of last office visit: 06/06/2023 Date of next office visit: 06/14/2023 Date of last refill: (see medication tab): 11/01/2021 Updated/Validated preferred pharmacy: Yes Patient instructed to contact the pharmacy prior to picking up the medication: Yes documented in this encounter [facility] 06-06-2023 Telephone encounter Note Patient stated blood pressure was high at appointment today and they are completely out of this medication. Medication name: amLODIPine (NORVASC) 10 MG tablet Medication dosage: 10 mg (Miligrams Monthly quantity needed: 30 How many day supply requestin days Medication route: oral (PO) Medication administration time(s): daily If taking medication PRN, reason for taking medication: N/A If this is a controlled substance do you receive this or any other controlled medication from any other doctor or facility: No Ordering provider: Dr Holt Date of last office visit: 06/06/2023 Date of next office visit: 06/14/2023 Date of last refill: (see medication tab): 11/01/2021 Updated/Validated preferred pharmacy: Yes Patient instructed to contact the pharmacy prior to picking up the medication: Yes [facility] 06-06-2023 Evaluation + Plan note Associated Problem(s): Hyperlipidemia LDL goal <70 Controlled, continue atorvastatin 40 mg daily [facility] 06-06-2023 Evaluation + Plan note Associated Problem(s): Hypothyroidism (acquired) Controlled, continue levothyroxine 50 mcg [facility] 06-06-2023 Miscellaneous Notes Associated Problem(s): Hyperlipidemia LDL goal <70 Controlled, continue atorvastatin 40 mg daily Associated Problem(s): Hypothyroidism (acquired) Controlled, continue levothyroxine 50 mcg Associated Problem(s): Diabetic nephropathy associated with type 2 diabetes mellitus (HCC) Stable, continue good blood sugar control to prevent kidney damage. Associated Problem(s): Essential hypertension Blood pressure was initially elevated, recheck was still high she was told that she needs to take her amlodipine every single day and follow-up in 1 week for blood pressure check documented in this encounter [facility] 06-06-2023 Evaluation + Plan note Associated Problem(s): Diabetic nephropathy associated with type 2 diabetes mellitus (HCC) Stable, continue good blood sugar control to prevent kidney damage. [facility] 06-06-2023 Evaluation + Plan note Associated Problem(s): Essential hypertension Blood pressure was initially elevated, recheck was still high she was told that she needs to take her amlodipine every single day and follow-up in 1 week for blood pressure check [facility] 06-06-2023 History of Presen t illness Narrative Patient verified by last name and date of . Images from the original note were not included. 06/06/2023 Shikha Herzog (: 1940) is a 83 y.o. female , Established patient, here for evaluation of the following chief complaint(s): Hypertension, Diabetes, Hypothyroidism, Hyperlipidemia, Medication Check (6 month), and Health Maintenance (Pt refused - thyroid ultrasound, tdap, shingles, and hep a and b vaccine) ASSESSMENT/PLAN: 1. Essential hypertension Assessment & Plan: Blood pressure was initially elevated, recheck was still high she was told that she needs to take her amlodipine every single day and follow-up in 1 week for blood pressure check 2. Hypothyroidism (acquired) Assessment & Plan: Controlled, continue levothyroxine 50 mcg 3. Diabetic nephropathy associated with type 2 diabetes mellitus (HCC) Assessment & Plan: Stable, continue good blood sugar control to prevent kidney damage. 4. Type 2 diabetes mellitus without complication, without long-term current use of insulin ([facility]/HCC) (HCC) - Hemoglobin A1c - Basic metabolic panel 5. Hyperlipidemia LDL goal <70 Assessment & Plan: Controlled, continue atorvastatin 40 mg daily No follow-ups on file. SUBJECTIVE/OBJECTIVE: HPI -Shikha comes in today for 6-month follow-up on her hypertension, hypothyroidism, diabetic nephropathy and her diabetes and her hyperlipidemia. Her blood pressure is elevated today and she does admit to not taking her amlodipine on a daily basis and she says her blood pressures at home are in the 140s over 90s. She does not check her blood sugars, her last A1c was 6.0 so not too bad and her cholesterol seems to be well controlled on her current dose of atorvastatin Review of Systems Constitutional: Negative for chills and fever. Respiratory: Negative for shortness of breath. Cardiovascular: Negative for chest pain and palpitations. Gastrointestinal: Negative for abdominal pain, blood in stool, constipation and diarrhea. Genitourinary: Negative for dysuria, frequency, hematuria and urgency. Neurological: Negative for weakness and numbness. Psychiatric/Behavioral: Negative for dysphoric mood. The patient is not nervous/anxious. Vitals: 06/06/23 0935 06/06/23 1007 BP: (!) 174/90 (!) 179/95 Pulse: 80 71 SpO2: 95% Weight: 152 lb (68.9 kg) Height: 5' 4 (1.626 m) Physical Exam Vitals and nursing note reviewed. Constitutional: General: She is not in acute distress. Appearance: Normal appearance. HENT: Head: Normocephalic. Right Ear: Tympanic membrane, ear canal and external ear normal. Left Ear: Tympanic membrane, ear canal and external ear normal. Mouth/Throat: Mouth: Mucous membranes are moist. Pharynx: Oropharynx is clear. Eyes: Extraocular Movements: Extraocular movements intact. Pupils: Pupils are equal, round, and reactive to light. Neck: Vascular: No carotid bruit. Cardiovascular: Rate and Rhythm: Normal rate and regular rhythm. Heart sounds: Normal heart sounds. No murmur heard. Pulmonary: Effort: Pulmonary effort is normal. Breath sounds: Normal breath sounds. Abdominal: General: Bowel sounds are normal. Palpations: Abdomen is soft. Musculoskeletal: General: Normal range of motion. Cervical back: Normal range of motion. Lymphadenopathy: Cervical: No cervical adenopathy. Skin: General: Skin is warm and dry. Neurological: General: No focal deficit present. Mental Status: She is alert and oriented to person, place, and time. Psychiatric: Mood and Affect: Mood normal. An electronic signature was used to authenticate this note. Kevyn Holt MD 06/06/2023 11:57 AM documented in this encounter [facility] 05-15-2023 Telephone encounter Note Prescription Request: Last medication check: 06/14/22 Last physical exam: 12/05/22 Next scheduled appointment: 06/06/23 Last date of refill on this medication 11/20/22 [facility] 05-15-2023 Miscellaneous Notes Prescription Request: Last medication check: 06/14/22 Last physical exam: 12/05/22 Next scheduled appointment: 06/06/23 Last date of refill on this medication 11/20/22 documented in this encounter [facility] 03-26-2023 Telephone encounter Note Reviewed chart. Refill appropriate. RX sent. [facility] 03-26-2023 Miscellaneous Notes Reviewed chart. Refill appropriate. RX sent. Prescription Request: Last medication check: 06/14/22 Last physical exam: 12/05/22 Next scheduled appointment: 06/06/23 Last date of refill on this medication 06/02/22 90 day 1 refill documented in this encounter [facility] 03-26-2023 Telephone encounter Note Prescription Request: Last medication check: 06/14/22 Last physical exam: 12/05/22 Next scheduled appointment: 06/06/23 Last date of refill on this medication 06/02/22 90 day 1 refill [facility] 01-22-2023 Telephone encounter Note Okay, thank you [facility] 01-22-2023 Miscellaneous Notes Okay, thank you Name of caller: Alfredo Contact phone number: [phone] Relationship to Patient: patient Provider: Yanet Practice: [facility] Chief Complaint/Reason for Call: FYI Made ED F/up appt for Tues 4.18 for only appt available in next couple days due to pt in ER for dizziness and needs to f/up Best time of day caller can be reached: Patient advised that office/PCP has 24-48 business hours to return their call: documented in this encounter [facility] 01-20-2023 Telephone encounter Note Name of caller: Alfredo Contact phone number: [phone] Relationship to Patient: patient Provider: Yanet Practice: [facility] Chief Complaint/Reason for Call: FYI Made ED F/up appt for Tues 4.18 for only appt available in next couple days due to pt in ER for dizziness and needs to f/up Best time of day caller can be reached: Patient advised that office/PCP has 24-48 business hours to return their call: [facility] 12-19-2022 Note . MICRO - Microbiology PROCEDURE: Urine Culture [*1] SOURCE: Urine, Clean Catch BODY SITE: COLLECTED DATE/TIME: 12/17/2022 17:20 EDT RECEIVED DATE/TIME: 12/18/2022 14:23 EDT START DATE/TIME: 12/18/2022 14:23 EDT FREE TEXT SOURCE: FINAL REPORTS Final Report [] Verified Date/Time/Personnel: 12/19/2022 12:00 EDT 10,000 - 50,000 cfu/ml Group B Beta Hemolytic Strep (Strep agalactiae) Sensitivity testing is not recommended for one of the following reasons: 1. Established susceptibility patterns are available or 2. Interpretative criteria are not available. Performing Locations *1: This test was performed at: [facility], [address] [place] [address], [id number] , [facility] ([place]) [facility] Medicare annual wellness visit, subsequent- Primary Diabetic nephropathy associated with type 2 diabetes mellitus (HCC) Essential hypertension Unspecified essential hypertension Type 2 diabetes mellitus without complication, without long-term current use of insulin ([facility]/HCC) (HCC) Hypothyroidism (acquired) Unspecified hypothyroidism Hyperlipidemia LDL goal <70 Other and unspecified hyperlipidemia documented in this encounter [facility] Family History No Family History Records FoundUnknown Family Member Name Dates Details First Degree Relatives Comments:Diabetes, HBP, Seiz ures, stroke Status:Active Summary Purpose Advance Directives No Advanced Directives Records FoundNo Advanced Directives Records Found Additional Source Comments Source Comments (unrecognize d section and content) In the event this informatio n is protected by the Federal Confidentiality of Alcohol and Drug Abuse Patient Records regulations: The Federal rules restrict any use of the information to criminally investigate or prosecute any alcohol or drug abuse patient.[facility] Reason for Visit (unrecogniz ed section and content) Reason Comments Med Refill Reason Comments Hypertension Diabetes Hypothyroidism Hyperlipidemia Medication Check 6 month Health Maintenance Pt refused - thyroid ultrasound, tdap, shingles, and hep a and b vaccine Reason Onset Date Comments Med Refill 06/06/2023 amLODIPine (NORV ASC) 10 MG tablet Reason Onset Date Comments Results 06/07/2023 Release of Information 06/07/2023 Reason Comments Medicare Annual Wellness Visit Subsequen t Pt refusing foot exam Blood Work Health Maintenance Pt refused- dexa sca n, rsv vaccine, pcv 20 vaccine, flu vaccine Care Teams (unrecognized sec tion and content) Examiner Rating Clerk Relationship Specialty Start Date End Date [facility] [place] [place] [phone] PCP - General 09/20/15 Examiner Rating Clerk Relationship Specialty Start Date End Date Kevyn Holt MD [address] [place] [address] [place], [place] [phone] PCP - General 09/20/15 Examiner Rating Clerk Relationship Specialty Start Date End Date Kevyn Holt MD [address] [place], [place] [address] [address] PCP - General 09/20/15 Examiner Rating Clerk Relationship Specialty Start Date End Date Kevyn Holt MD [address] [place], [place] [address] [address] PCP - General 09/20/15 Examiner Rating Clerk Relationship Specialty Start Date End Date Kevyn Holt MD [address] [place], [place] [address] [phone] PCP - General 09/20/15 INFORMATION SOURCE (unrecogn ized section and content) DATE CREATED AUTHOR AUTHOR'S ORGANIZ ATION 12/08/2023 [facility] FOR RECORDS PERTAINING TO PATIENTS WHO ARE OR HAVE BEEN ENROLLED IN A CHEMICAL DEPENDENCY/SUBSTANCEABUSE PROGRAM, SOME INFORMATION MAY BE OMITTED. This clinical summary was aggregated from multiple sources. Caution should be exercised in using it in the provision of clinical care. This summary normalizes information from multiple sources, and as a consequence, information in this document may materially change the coding, format and clinical context of patient data. In addition, data may be omitted in some cases. CLINICAL DECISIONS SHOULD BE BASED ON THE PRIMARY CLINICAL RECORDS. [employer] [facility]. provides no warranty or guarantee of the accuracy or completeness of information in this document.
== END 2023-12-13 20:21 | disposition left against medical advice (07) ==
LOC: ED 20:21
PROVIDERS: PCP Family Medicine
DX: Z53.21 Procedure and treatment not carried out due to patient leaving prior to being seen by health care provider (principal)